=== PATIENT | male | born 1950 | race Caucasian/White ===

== ENCOUNTER → 2023-12-08 08:29 | Outpatient (REF) | payer MEDICARE, SELFPAY ==
[2023-12-08 08:47] VITALS: BP 129/85; BP_SYST 50
[2023-12-08] MEDS: ANCEF 10 IV (10:04)
[2023-12-08 11:05] VITALS: BP 121/72
[2023-12-08 11:10] VITALS: BP 117/82
[2023-12-08 11:15] VITALS: BP 113/72
[2023-12-08 11:30] VITALS: BP 114/72
== END ==
LOC: RADI 08:29
PROVIDERS: ATTENDING PHYSICIAN Internal Medicine Hematology & Oncology; FAMILY PHYSICIAN Internal Medicine
DX: C88.0 Waldenstrom macroglobulinemia (principal)
CPT/HCPCS: 36561; 76937; 77001; 99152; 99153; C1788

== ENCOUNTER → 2024-01-04 15:26 | Outpatient (REF) | payer MEDICARE, SELFPAY ==
[2024-01-04 10:05] LABS: % Basophils 1.2 % (0-2); % Immature Granulocytes 0.2 % (0-0.5); % Lymphocytes 25.7 % (20.5-51.1); % Monocytes 7.2 % (1.7-9.3); % Neutrophils 59.7 % (42.2-75.2); Absolute Basophils 0.1 10^3/uL (0-0.2); Absolute Eosinophils 0.4 10^3/uL (0-0.7); Absolute Lymphocytes 1.5 10^3/uL (1.2-3.4); Absolute Monocytes 0.4 10^3/uL (0.1-0.6); Absolute Neutrophils 3.5 10^3/uL (1.4-6.5); Hematocrit 44.9 % (39.0-52.0); Mean Corp Hgb Conc. 33.4 g/dL (33.0-37.0); Mean Corpuscular Hgb 29.5 pg (27.0-31.0); Mean Corpuscular Volume 88.2 fL (80.0-94.0); Nucleated Red Blood Cells % 0 % (-); Platelet Count 210 10^3/uL (130-400); Red Blood Cell Count 5.09 10^6/uL (4.70-6.10); Red Cell Dist. Width 13.8 % (11.5-14.5); White Blood Cell Count 5.8 10^3/uL (4.8-10.8)
== END ==
LOC: OIDL 15:26
PROVIDERS: ATTENDING PHYSICIAN Internal Medicine Hematology & Oncology
DX: D47.2 Monoclonal gammopathy (principal)
CPT/HCPCS: 85025

== ENCOUNTER 2024-01-14 06:36 | Inpatient (IN) | payer MEDICARE, SELFPAY ==
[2024-01-14] VITALS (16 sets, daily range): BP systolic 124–199; BP diastolic 62–95; BMI 29.3; BMI 27.8
--- NOTE | 2024-01-14 03:36 | ED.GENMED ---
History of Present Illness
General
Chief Complaint: Abdominal Pain
Source: patient and spouse
Time Seen by Provider: 01/14/24 03:24
Travel History
Have you had any contact with someone who has COVID-19?: No
Do you have any symptoms of coronavirus? Fever > 100 degrees, chills, cough, shortness of breath, sore throat, loss of taste or smell, muscle aches, or headache?: No
History of Present Illness
History of Present Illness:
This patient is a 73-year-old male presents emergency department with complaints of epigastric discomfort that developed at approximately 10:30 PM tonight. He was at a function, reports last eating around 9 or 9:30 PM, and also had 4 drinks of
alcohol. The pain, since beginning at 1030, has gotten progressively worse and is very painful. He denies radiation of the pain, back pain, chest pain, dyspnea, vomiting, nausea, fever, chills, lower abdominal pain. Patient had a normal bowel
movement this morning and has been urinating as usual. The pain is not 'ripping' or 'tearing', does not radiate to the back, and was not sudden onset.
Past History
Past History
ED Past Medical History: HTN, Other (Seasonal allergies) and Other (CIDP )
ED Past Surgical History: Other (Vasectomy)
Social History
Tobacco: Non-smoker
Alcohol: Occasional
Drug: None
Personal:
Living: with family
Phy Exam
Physical Exam
Physical Exam:
GENERAL: Alert , in no apparent distress, pleasant, nontoxic
EYE: pupils equal and reactive
NECK: Supple, no significant adenopathy.
ENT: o/p clr, mmm.
CARDIAC: Regular rate and rhythm .
LUNGS: Clear breath sounds bilaterally, no acute respiratory distress, no wheezes/rales/rhonchi
ABDOMEN: Soft, mild right upper quadrant and epigastric tenderness, no r/g, no cvat
NEUROLOGICAL: Alert and oriented, no focal neuro deficits
SKIN: Warm and dry, skin intact.
MUSCULOSKELETAL: No edema, well perfused.
PSYCH: Normal and appropriate interaction.
Course
Orders/Labs/Results
Orders:
Orders
01/14/24 03:05
EKG [Electrocardiogram (*1)] Urgent
Reason for Study: Abdominal Pain
EKG- Treatment ONCE
01/14/24 03:36
US Abdomen Complete/Upper Urgent
Comment:
Reason For Exam: upper abd pain
01/14/24 03:40
Morphine Sulfate 6 mg IV NOW STA
01/14/24 03:52
Complete Blood Count/No Diff Urgent
Glycohemoglobin (HgbA1c) Urgent
Troponin I Urgent
01/14/24 04:55
Comprehensive Metabolic Panel Routine
Lipase Routine
Comment: REDRAW
01/14/24 05:01
Morphine Sulfate 6 mg IV NOW STA
01/14/24 05:38
Morphine Sulfate 6 mg IV NOW STA
01/14/24 05:41
Piperacillin/Tazo 3.375 Gram [Zosyn] 3.375 gram in 50 ml IV NOW
01/14/24 06:23
Admit/Transfer Patient As Directed
Co-Sign Provider:
Level of Care: Inpatient admission
Assign to:: Medical/Surgical
Physician / Group: Marcelo
Diagnosis: Symptomatic Cholelithiasis
Reason for Hospitalization: Symptomatic Cholelithiasis
Expected length of stay greater than two midnights?: Yes
ELOS- Estimated Length of Stay in days: 2
I certify the patient meets the requirements for IP care: Yes
Code Status As Directed
Resuscitation Status: Full Code
01/14/24 07:08
SURGICAL CONSULT Routine
Consulting Provider: Efrain Booker
Was physician already notified: No
Reason for consult: Symptomatic Cholelithiasis
01/14/24 08:17
HYDROmorphone [Dilaudid] 0.5 mg IV Q4HPRN PRN
01/14/24 11:18
Acetaminophen [Tylenol] 650 mg PO Q4HPRN PRN
Lactated Ringers [Lr] 1,000 ml IV 100 mls/hr
Ondansetron Injectable [Zofran] 4 mg IV Q6HPRN PRN
Pantoprazole [Protonix IV] 40 mg IV DAILY
01/14/24 11:18
Consult Notification Routine
Specialty to Notify: Surgical
Date consulting provider notified: 01/14/24
Time consulting provider notified: 11:18
Notified:: Provider
Comment: Dr Booker saw patient already
Activity As Directed
Activity Level: Ambulate
With Assistance
Bladder Scan As Directed
Follow Bladder Retention/Intermittent Cath Algorithm?: Yes
PRN if no void in __ hours: 6
Frequency: Per Retention Algorithm
If Bladder Scan Result >: 400
then:: Straight cath
I/O [Intake/ Output] As Directed
Frequency: Per unit guidelines
Pneumatic Compression Sleeves As Directed
Type: Knee high
Straight Cath As Directed
Frequency: Per Retention Algorithm
Additional Instructions: straight cath as needed per acute urinary retention algorithm for 24 hrs
Additional Instructions: for bladder scan greater than 400 mL
Vital Signs As Directed
Frequency: Per unit guidelines
Oxygen Therapy [O2 Therapy] [RESP] Routine
Titrate/Wean O2 to maintain O2 sat greater than (%): 94
DX Deep Vein Thrombosis Video Routine
01/15/24 05:12
Complete Blood Count/No Diff IN AM
01/15/24 Breakfast
NPO
Allow oral meds: Yes
Allow clear liquids: Sips of Clears
Abnormal Lab Results
01/14/24 01/14/24
03:52 04:55
Sodium 132 L mmol/L
(135-145)
BUN 27 H mg/dl
(9-20)
Glucose 121 H mg/dl
(70-99)
Hemoglobin A1c 5.7 H %
(4.0-5.6)
Total Protein 8.6 H g/dl
(6.3-8.2)
01/14/24 03:52
01/14/24 04:55
Vital Signs
Initial and Last Documented VS:
Initial Vital Signs
Temp Pulse Resp BP Pulse Ox
97.7 F 64 16 199/95 97
01/14/24 03:12 01/14/24 03:12 01/14/24 03:12 01/14/24 03:12 01/14/24 03:12
Last Documented Vital Signs
Temp Pulse Resp BP Pulse Ox
98.1 F 59 17 129/63 97
01/15/24 14:19 01/15/24 14:19 01/15/24 14:19 01/15/24 14:19 01/15/24 14:19
*Critical Care Note
Total Time (30-74mins, 75-104mins- exclusive of procedures): Not Applicable
Update Note
Update Note:
Patient presents to the Emergency Department with ___epigastric pain
Number and Complexity of Problems Addressed at the Encounter
� Chronic conditions affecting care:
� Acute Exacerbation and/or Progression of Chronic Illness:
� Differential Diagnosis includes: But not limited to ACS, pancreatitis, cholecystitis, aortic aneurysm, etc.
Amount and/or Complexity of Data to be Reviewed and Analyzed
� I performed an independent evaluation of and my interpretation is:
EKG: Read by me, left bundle branch block, no acute ischemia, normal sinus rhythm
CT:
Xrays:
Laboratory Studies: Generally' unremarkable
Other: Ultrasound suggestive of hepatic steatosis. Gallbladder contains numerous gallstones in the neck which appear impacted, mild gallbladder distention with slightly tensile appearance of the fundus, overall ultrasound
findings are therefore considered equivocal for the diagnosis of cholecystitis. CBD measures 4.5 mm, no significant intrahepatic or extrahepatic ductal dilatation, normal bilateral kidneys nonaneurysmal aorta
� Review of other/old records reveals:
� Clinical information was obtained by an independent historian: who is bedside
� Prescriptions/Medications Considered but not given:
� Further testing considered but not performed:
Risk of Complications and/or Morbidity or Mortality of Patient Management
� Social determinants of health affecting care:
� Discussion with other providers (PCP, Hospitalists, Consultants, etc):
� Escalation of care including admission/observation vs risk of discharge considered: 2 3:39 AM, I met patient upon his arrival to the room, helped him get settled in bed and I personally put him on the monitor while I took a
history. Of note, patient states that his brother of an aneurysm although he does not know further details for example if it was thoracic or abdominal, etc. His history and physical are not suggestive of an aortic etiology, pain not abrupt in
onset, not typical in quality or radiation, pulses are equal, etc. etc. However, this does remain on the differential, I have asked community development coordinator to notify ultrasound of the need for a prompt ultrasound now while we obtain port access and obtain labs.
Patient also notes that he has a history of a left bundle branch block on ECG as noted here.
5:39 AM labs ultrasound etc. noted, strongly suspects impacted gallstones as etiology of patient's symptoms. Does not appear septic. No ductal dilatation. Equivocal for cholecystitis. Has required several doses of pain medication. Will admit to
hospitalist with GI and general surgery consult.
ED Attending Note
-
Portions of this chart may have been created with voice recognition software.� Occasional wrong word or��sound alike� substitutions may have occurred due to the inherent limitations of voice recognition software.
Discharge Plan
Departure
Patient Disposition: Admit
Date of Disposition: 01/14/24
Time of Disposition: 05:40
Admit to: Med/Surg
Admit to doctor: marcelo
Presentation/result/management discussed w/ accepting MD/DO: Hospitalist
Condition: Good
Discharge Problem:
impacted gallstones
Interventions
Interventions:
*Risk Screen - Suicide Last Done: 01/14/24 03:12
*General Assessment Last Done: 01/14/24 03:12
*Neglect/Abuse Screening Last Done: 01/14/24 03:12
ED- Fall Risk Assessment Last Done: 01/14/24 04:07
*ED COVID-19 Vaccine History Last Done: 01/14/24 03:44
*Nursing Disposition Last Done: 01/14/24 11:20
SN-Uenljb-Irfrdctzrj Assessment Last Done: 01/14/24 08:40
Discharge Date and Time
Discharge Date/Time: 01/14/24 11:10
[2024-01-14] MEDS: MORPHINE SULFATE 6 MG IV ×3 (04:00→05:55)
[2024-01-14 04:04] LABS: Hematocrit 41.1 % (39.0-52.0); Hemoglobin 14.6 g/dL (13.0-18.0); Mean Corp Hgb Conc. 35.5 g/dL (33.0-37.0); Mean Corpuscular Hgb 29.8 pg (27.0-31.0); Mean Corpuscular Volume 83.9 fL (80.0-94.0); Mean Platelet Volume 9.2 fL (7.4-10.4); Platelet Count 197 10^3/uL (130-400); Red Cell Dist. Width 13.6 % (11.5-14.5); White Blood Cell Count 7.1 10^3/uL (4.8-10.8)
--- NOTE | 2024-01-14 04:20 | EDRN ---
Pt developed epigastric pain described as 'achy' around 2229. Pt did not eat dinner, rather he grazed on foods until 4144-5964. Pt took 'a bunch of antacids' which did not help the pain. Pt tried to make himself vomit unsuccessfully. No cp, sob,
radiation of pain, n/v/d/constipation, urinary symptoms, fever/chills/cough. Pt more comfortable supine vs sitting or standing.
[2024-01-14 04:31] LABS: Troponin I < 0.012 ng/ml
[2024-01-14 05:20] LABS: ALT (SGPT) 43 U/L (0-50); AST (SGOT) 50 U/L (17-59); Albumin 4.3 g/dl (3.5-5.0); Alkaline Phosphatase 104 U/L (38-126); Blood Urea Nitrogen 27 mg/dl (9-20); Calcium 9.5 mg/dl (8.4-10.2); Carbon Dioxide 26 mmol/L (22-30); Chloride 99 mmol/L (98-107); Estimated Creatinine Clearance 65 ml/min; Glucose 121 mg/dl (70-99); Lipase 150 U/L (23-300); Potassium 3.9 mmol/L (3.5-5.1); Sodium 132 mmol/L (135-145); Total Bilirubin 0.7 mg/dl (0.2-1.3); Total Protein 8.6 g/dl (6.3-8.2); eGFR > 60.00
[2024-01-14] MEDS: ZOSYN 50 IV ×3 (05:59→17:54)
--- NOTE | 2024-01-14 06:36 | HPS.HSE ---
Family Physician
-
Family Physician: David Kowalski
Chief Complaint
-
Abd Pain
History of Present Illness
Patient is a 73y M with PMH significant for hypertension and peripheral neuropathy who presents to ED complaining of abdominal pain. Patient states that he developed sudden onset of epigastric abdominal pain around 10:30 PM last night. Pain was
severe and intermittent. 'Came in waves'. he denies any associated nausea - although he did attempt to induce emesis as he thought this might improve his symptoms. It did not. He denies any fevers or chills. No chest pain or dyspnea. He denies
any prior history of similar symptoms.
Symptoms became more severe and more consistent throughout the night.
At present in the ED, he is feeling improved after receiving pain medication.
Medical History
Past Medical History
Past Medical History: Reports Other
Additional Past Medical History:
Hypertension
Peripheral Neuropathy
Known LBBB
Past Surgical History: Reports Other
Additional Past Surgical History:
T&A
Vasectomy
Right ACW Port Placement
Social History
Tobacco: Non-smoker
Alcohol: None
Drug: None
Family History
Family History: Not pertinent
Allergies / Home Medications
Allergies reflects when Allergies were last updated in [facility].
Home Medications with original date entered in [facility]
Allergy/Medication List:
Allergies
Allergy/AdvReac Type Severity Reaction Status Date / Time
cat dander Allergy Unknown Verified 01/14/24 04:05
levofloxacin [From Levaquin] Allergy Unknown Verified 01/14/24 04:05
pollen extracts Allergy Unknown Verified 01/14/24 04:05
Home Medications
fexofenadine 180 mg tablet 180 mg PO DAILY 12/07/23
losartan 100 mg-hydrochlorothiazide 25 mg tablet 1 tab PO DAILY 12/07/23
Review of Systems
-
History Source: Patient
A 12 point ROS was completed and negative except as noted: Yes
Constitutional: Denies Fever or Chills
Respiratory: Denies Cough or Trouble Breathing
Cardiac: Denies Chest Pain or Palpitations
Abdomen/GI: Reports Abdominal Pain; Denies Nausea, Vomiting, Diarrhea or Constipated
: Denies Dysuria or Flank Pain
Neurological: Denies Dizzy or Headache
Psych: Denies Depression or Anxiety
Physical Exam
Vital Signs
Vital Signs
Temp Pulse Resp BP Pulse Ox
97.7 F 54 14 146/76 97
01/14/24 03:12 01/14/24 06:00 01/14/24 06:00 01/14/24 06:00 01/14/24 03:12
Physical Exam
General: Other (73y M in no acute distress.)
HEENT: Moist mucous membranes and PERRLA
Respiratory: Clear; No Wheezes, Rales or Rhonchi
Cardiac: S1/S2 and Regular Rhythm; No Murmur
GI: Soft, Non Tender, Non Distended and Normal Bowel Sounds
Musculoskeletal: No Clubbing, No Cyanosis and No Edema
Neuro: AO x 3
Laboratory Results
-
01/14/24 03:52
01/14/24 04:55
Laboratory Results
Total Bilirubin 0.7 mg/dl (0.2-1.3) 01/14/24 04:55
AST 50 U/L (17-59) 01/14/24 04:55
ALT 43 U/L (0-50) 01/14/24 04:55
Alkaline Phosphatase 104 U/L (38-126) 01/14/24 04:55
Troponin I < 0.012 ng/ml 01/14/24 03:52
Lipase 150 U/L (23-300) 01/14/24 04:55
Impression/Plan
-
A/P: Patient is a 73y M with PMH significant for hypertension an neuropathy who presents to ED complaining of abdominal pain.
Symptomatic Cholelithiasis
- Admit for further evaluation and treatment.
- US done in the ED shows many gallstones with some impacted / in the gallbladder neck.
- No significant wall thickening or pericholecystic fluid, No ductal dilation.
- LFTs are normal / no evidence of cholestasis or biliary obstruction.
- Patient is afebrile and non-toxic appearing without leukocytosis.
- Continue supportive care with pain control, antiemetics if needed and IVFs.
- Consult Surgery to evaluate for possible cholecystectomy.
Benign Hypertension
- Stable. Continue losartan withholding parameters.
- Hold HCTZ component for now.
Peripheral Neuropathy
- Unclear etiology - potentially secondary to remote and prolonged quinolone use (apparently for chronic sinusitis).
- Patient receives IVIG infusions every 3 weeks for treatment.
- No inpatient management needed.
DVT Prophylaxis: SCDs
Code Status: Full
--- NOTE | 2024-01-14 07:42 | W.PN.HOSP.TC ---
Addendum entered and electronically signed by Rosmery Echavarria MD 01/14/24 10:30:
d/w Card Dr Felix.
Bedside echo performed, EF normal.
LBBB was from 12 years ago, hence not concerning.
Pt sees Dr WATTERS outpt (Dr Rolon).
Medically optimized to proceed with low risk procedure
Surgery team informed
Original Note:
Today's Communication/Plan
-
see A/P
Assessment / Plan
Assessment / Plan
73y M with PMH significant for hypertension and peripheral neuropathy who presented to ED complaining of abdominal pain.�Patient states that he developed sudden onset of epigastric abdominal pain around 10:30 PM last night.�Pain was severe and
intermittent.� 'Came in waves'.� he denies any associated nausea - although he did attempt to induce emesis as he thought this might improve his symptoms- it did not.�
He denies any fevers or chills.� No chest pain or dyspnea.� He denies any prior history of similar symptoms.
Symptoms became more severe and more consistent throughout the night.
At present in the ED, he is feeling improved after receiving pain medication.
A/P:
# Symptomatic Cholelithiasis/ biliary colic
US done in the ED shows many gallstones with some impacted / in the gallbladder neck- pending formal report
No significant wall thickening or pericholecystic fluid,� No ductal dilation.
LFTs are normal / no evidence of cholestasis or biliary obstruction.
Patient is afebrile and non-toxic appearing without leukocytosis.
Continue supportive care with pain control, antiemetics if needed and IVFs.
Surgery on board and plan for perc glo 01/13
# Benign Hypertension- Stable.�
Continue losartan with holding parameters.
Hold HCTZ component for now.
# Peripheral Neuropathy- Unclear etiology - potentially secondary to remote and prolonged quinolone use (apparently for chronic sinusitis).
Patient receives IVIG infusions every 3 weeks for treatment.
No inpatient management needed.
DVT Prophylaxis:� SCDs
Code Status:� Full
Anticipated Discharge: 24 - 48 hours
Subjective/Interval History
-
Date of Service: January 14, 2024
Objective Data
-
Labs:
Laboratory Results
01/14/24 01/14/24
03:52 04:55
WBC 7.1
Hgb 14.6
Hct 41.1
Plt Count 197
Sodium Cancelled 132 L
Potassium Cancelled 3.9
Chloride Cancelled 99
Carbon Dioxide Cancelled 26
BUN Cancelled 27 H
Creatinine Cancelled 1.1
Glucose Cancelled 121 H
Calcium Cancelled 9.5
Total Bilirubin Cancelled 0.7
AST Cancelled 50
ALT Cancelled 43
Alkaline Phosphatase Cancelled 104
Vital Signs:
Vital Signs
Temp Pulse Resp BP Pulse Ox
36.5 C 54 14 146/76 97
01/14/24 03:12 01/14/24 06:00 01/14/24 06:00 01/14/24 06:00 01/14/24 03:12
Review of Systems
-
Abdomen/GI: Reports Abdominal Pain (improved)
Physical Exam
-
General: Well Developed, Well Nourished, No Apparent Distress, Comfortable and Conversant; Negative Respiratory Distress
HEENT: Normocephalic, Atraumatic, Nose Appears Normal and Ears Appear Normal; Negative Oxygen
Respiratory: Clear to Auscultation and Non Labored Respirations; Negative Accessory Resp Muscle Use
Cardiac: Regular Rhythm and S1/S2
GI: Soft, Nondistended, Normal Bowel Sounds and Tender (mild upper abdomen )
Skin: Warm and Dry
Neuro: Awake, Alert, Oriented, AO x 3 and Nonfocal/Grossly Intact
Psych: Calm and Intact Judgement/Insight
Data Reviewed
-
Labs: Labs Reviewed by me
--- NOTE | 2024-01-14 08:24 | CON.GS ---
Addendum entered and electronically signed by Efrain Booker MD 01/14/24 10:35:
Patient seen and examined with resident. Agree with assessment plan as documented below.
Patient is a 73 yo M with a PMH of HTN, known LBBB, and peripheral polyneropathy who presents to the ED with RUQ abdominal pain. Mr. Mabry states that he was in his usual state of health until a dinner alliance party on the evening of 01/12. Following this
he developed intense RUQ abdominal pain and discomfort radiating to his back. No nausea or emesis. Denies fevers, chills, jaundice, pale stools, or tea colored urine. Upon further prompting, he denies any prior episodes of upper abdominal pain or
discomfort with oral intake. His symptoms are improved, but not completely resolved.
Gen: NAD
Abd: soft, mild tenderness in RUQ, positive Abbott's with deep palaption, mild distension/obesity, non-peritoneal
Labs and US imaging were reviewed.
Patient is a 73 yo M p/w biliary colic versus acute cholecystitis
The natural history and pathophysiology of biliary and stone disease was discussed. Anatomy was reviewed. Workup thus far was reviewed. Given his persistent pain, recommend cholecystectomy during this admission. Patient is in agreement and would
like to proceed with surgical intervention.
Plan for a laparoscopic cholecystectomy with possible cholangiogram. The procedure itself, as well as the risks, benefits, and alternatives was discussed. Specifically, we discussed the risks of bleeding, infection, injury to surrounding
structures (bowel, bile ducts), CBD injury, need for open procedure. Typical post procedure recovery including pain management and the 10 to 20% risk of fluctuations in GI function was discussed. All questions answered. Consent signed.
-- Laparoscopic cholecystectomy with possible IOC
-- NPO, IVF
-- Zosyn
-- Cardiology eval for forrest-op risk stratification and LBBB
Original Note:
Consultation
-
Reason for Consultation: Symptomatic Cholelithiasis
Medical History
-
Chief Complaint: RUQ Pain
History of Present Illness:
73 year old male history of HTN, peripheral neuropathy who presents to the ED after waxing and waning RUQ pain with radiation to back. Per patient, was in usual state of health at dinner alliance party with friends when he started developing RUQ discomfort
that fluctuated in severity. Denies similar episodes in the past. Denies nausea but did attempt to induce emesis to improve symptoms. After persistence in symptoms, presented to the ED where RUQ US demonstrated evidence of numerous impacated
gallstones consistent with clinical picture of cholelithiasis. Remains afebrile with normal LFTs. No history of stool or urine changes, abdominal surgical history. Not anticoagulated. General surgery consulted for symptomatic cholelithiasis. At time
of examination, patient is resting comfortably with improvement in symptoms with morphine.
Past Medical History
Past Medical History: HTN
Past Surgical History: Reviewed & Noncontributory
Social History
Alcohol: Occasional
Family History
Family History: Reviewed & Not Pertinent
Allergies / Home Medications
Allergy/AdvReac Type Severity Reaction Status Date / Time
cat dander Allergy Unknown Verified 01/14/24 04:05
levofloxacin [From Levaquin] Allergy Unknown Verified 01/14/24 04:05
pollen extracts Allergy Unknown Verified 01/14/24 04:05
Medication Instructions Recorded Confirmed Type
fexofenadine 180 mg tablet 180 mg PO DAILY 12/07/23 01/14/24 History
losartan 100 1 tab PO DAILY 12/07/23 01/14/24 History
mg-hydrochlorothiazide 25 mg tablet
Review of Systems
-
All other systems: Negative unless noted
Constitutional: No Symptoms
EENT: No Symptoms
Respiratory: No Symptoms
Cardiac: No Symptoms
Abdomen/GI: Abdominal Pain
: No Symptoms
Musculoskeletal: No Symptoms
Skin: No Symptoms
Neurological: No Symptoms
Endocrine: No Symptoms
Hematologic/Lymphatic: No Symptoms
A 10 point review of systems was completed, and was negative except as per HPI.
Physical Exam
Vital Signs
Temp Pulse Resp BP Pulse Ox
97.7 F 54 14 146/76 97
01/14/24 03:12 01/14/24 06:00 01/14/24 06:00 01/14/24 06:00 01/14/24 03:12
01/13/24 01/14/24 01/15/24
05:59 06:59 06:59
Actual Weight
Body Mass Index (BMI) 29.3
Lab Results
01/14/24 03:52
01/14/24 04:55
WBC 7.1 10^3/uL (4.8-10.8) 01/14/24 03:52
Hgb 14.6 g/dL (13.0-18.0) 01/14/24 03:52
Hct 41.1 % (39.0-52.0) 01/14/24 03:52
Plt Count 197 10^3/uL (130-400) 01/14/24 03:52
Data Reviewed
-
Radiology: Report Reviewed by me
Ultrasound: Image Personally Visualized and interpreted
Labs: Labs Reviewed by me
Assessment / Plan
-
73 year old M hx of HTN and peripheral neuropathy presenting with waxing and waning RUQ pain, imaging and clinical picture consistent with symptomatic cholelithiasis. Patient consented for laparoscopic cholecystectomy.
- NPO
- Type & Screen
- Continue morphine for pain management
- OR later today (01/14/24)/early tomorrow (01/15/24) for lap glo with Dr. Booker
[2024-01-14] MEDS: DILAUDID 0.5 MG IV (08:34)
--- NOTE | 2024-01-14 10:27 | W.PN.UPDATE ---
Update Note
Progress Note Update
73-year-old gentleman with known history of hypertension currently maintained on losartan/hydrochlorothiazide
Who was diagnosed with left bundle branch block 12 years ago and did wear a Holter monitor that did not show any arrhythmias. He does not know of his LV systolic functions.
He is undergoing laparoscopic cholecystectomy versus possible laparotomy. He is intermediate risk patient for moderate to high risk procedure.
A bedside echo was done that shows LVEF of 55 to 60% with wall motion abnormalities likely consistent with bundle branch block.
No further testing is needed. Patient can proceed to the scheduled surgery as planned without any further testing.
CCT 30 min
--- NOTE | 2024-01-14 11:19 | EDRN ---
Patient taken to room 2101 by community service technician.
[2024-01-14] MEDS: LR 1000 IV ×2 (11:35→22:31)
[2024-01-14] MEDS: COZAAR 100 MG PO (11:42)
[2024-01-14] MEDS: NSS (PRESERVATIVE FREE) 10 ML IV (11:43)
[2024-01-14] MEDS: PROTONIX IV 40 MG IV (11:43)
[2024-01-14 12:30] LABS: Glycohemoglobin (HgbA1c) 5.7 % (4.0-5.6)
--- NOTE | 2024-01-14 13:38 | PTCARENOTE ---
Pt arrived from ED at aprox 1120. Pt able to walk into room unassisted. Admission and assessment done. Pt with no c/o at this time. Pt for OR either today or tomorrow. IVF started to right hand. IV team in to access patients port.
--- NOTE | 2024-01-14 14:26 | W.SUR.PREOP ---
Pre-Operative Surgical Note
-
I have examined this patient prior to the performance of the scheduled procedure.
The patient's condition is unchanged from the time of the current History and
Physical and the patient is able to undergo the scheduled procedure.
--- NOTE | 2024-01-14 20:00 | PTCARENOTE ---
Pt. transported to PACU area, report given to Jovana.
--- NOTE | 2024-01-14 21:52 | W.IMMPOSTOP ---
Addendum entered and electronically signed by Efrain Booker MD 01/14/24 22:00:
[facility]#[id number]
Original Note:
Surgical Immed Post Op Note
-
Primary Surgeon: Ade
Assisting Surgeon: DALILA Dsouza
Pre-op Diagnosis: Acute cholecystitis
Post-op Diagnosis: Acute cholecystitis
Procedure Performed: Laparoscopic cholecystectomy
Anesthesia Type: General
Specimen / Cultures:
1. Gallbladder
Estimated Blood Loss: 7 cc
Complications: None
Operative Findings:
1. Acutely inflamed GB, edematous, thickened wall
2. Critical view of safety
3. No IOC as Rads not available
Plan:
-- Standard recovery
-- No need for additional abx
[2024-01-14] MEDS: DEMEROL 12.5 MG IV ×2 (22:13→22:30)
--- NOTE | 2024-01-14 23:01 | PTCARENOTE ---
Pt. returning from PACU, assessed with off-going PACU nurse. Pt. drowsy, arousable to verbal stimuli, even and nonlabored breathing on RA, in NAD, denies nausea, states pain is tolerable, and VSS. Pt. given ice chips at this time, updated on changes
to care plan and he verbalized his understanding.
[2024-01-15] VITALS: BP 139/75
[2024-01-15 01:00] VITALS: BP 126/76
[2024-01-15 02:11] VITALS: BP 134/64
[2024-01-15 05:37] LABS: Hematocrit 40.8 % (39.0-52.0); Hemoglobin 13.8 g/dL (13.0-18.0); Mean Corp Hgb Conc. 33.8 g/dL (33.0-37.0); Mean Corpuscular Hgb 29.9 pg (27.0-31.0); Mean Corpuscular Volume 88.3 fL (80.0-94.0); Mean Platelet Volume 9.5 fL (7.4-10.4); Platelet Count 180 10^3/uL (130-400); Red Blood Cell Count 4.62 10^6/uL (4.70-6.10); Red Cell Dist. Width 13.7 % (11.5-14.5); White Blood Cell Count 4.9 10^3/uL (4.8-10.8)
[2024-01-15 06:02] LABS: ALT (SGPT) 54 U/L (0-50); AST (SGOT) 52 U/L (17-59); Albumin 3.7 g/dl (3.5-5.0); Alkaline Phosphatase 85 U/L (38-126); Blood Urea Nitrogen 22 mg/dl (9-20); Calcium 9.1 mg/dl (8.4-10.2); Carbon Dioxide 30 mmol/L (22-30); Chloride 96 mmol/L (98-107); Estimated Creatinine Clearance 61 ml/min; Glucose 145 mg/dl (70-99); Potassium 4.6 mmol/L (3.5-5.1); Sodium 133 mmol/L (135-145); Total Bilirubin 0.6 mg/dl (0.2-1.3); Total Protein 7.5 g/dl (6.3-8.2); eGFR > 60.00
[2024-01-15 07:45] VITALS: BP 125/59
--- NOTE | 2024-01-15 08:56 | W.PN.GS2 ---
Today's Communication / Plan
-
dispo planning
Assessment / Plan
-
73 yo male presenting with acute cholecystitis now POD #1 Lap glo
AFVSS
Labs stable post op
Tolerating diet
Pain well managed
--Continue regular diet
--Reviewed post op care with patient
--Analgesics as needed
--D/C IVF
--Ok for d/c from surgical standpoint, d/c instructions updated
Subjective Data
-
Date of Service: January 15, 2024
Patient seen and examined at bedside. Post op discomfort minimal. Denies n/v. Tolerating diet.
Objective Data
-
Intake and Output
01/14/24 01/15/24 01/16/24
06:59 06:59 06:59
Intake Total 1860 / 1860
Balance 1860 / 1860
Intake:
Oral fluids 360 / 360
IV fluids (Total) 1400 / 1400
Normosol 100 / 100
IV piggybacks 100 / 100
Other:
Number of approximated MODERATE 2
amounts of urine
Vital Signs
Temp Pulse Resp BP Pulse Ox
98.1 F 51 17 125/59 96
01/15/24 07:45 01/15/24 07:45 01/15/24 07:45 01/15/24 07:45 01/15/24 07:45
Lab Results
01/15/24 05:12
01/15/24 05:12
Calcium 9.1 mg/dl (8.4-10.2) 01/15/24 05:12
Total Bilirubin 0.6 mg/dl (0.2-1.3) 01/15/24 05:12
Direct Bilirubin 0.0 mg/dl (0.0-0.4) 01/15/24 05:12
AST 52 U/L (17-59) 01/15/24 05:12
ALT 54 U/L (0-50) H 01/15/24 05:12
Alkaline Phosphatase 85 U/L (38-126) 01/15/24 05:12
Total Protein 7.5 g/dl (6.3-8.2) 01/15/24 05:12
Albumin 3.7 g/dl (3.5-5.0) 01/15/24 05:12
Physical Exam
-
NAD, Ox3
ABD soft/ mild incisional tenderness/ ND
Incisions well approximated with intact glue, no erythema
[2024-01-15] MEDS: LR IV (09:28)
[2024-01-15] MEDS: COZAAR 100 MG PO (09:28)
[2024-01-15] MEDS: PROTONIX IV 40 MG IV (09:30)
[2024-01-15] MEDS: NSS (PRESERVATIVE FREE) 10 ML IV (09:30)
[2024-01-15] MEDS: FLUSH (NSS) 1 FLUSH IV (09:31)
--- NOTE | 2024-01-15 12:23 | W.PN.HOSP.TC ---
Today's Communication/Plan
-
d/c
Assessment / Plan
Assessment / Plan
pt is a 73 year old male
Symptomatic Cholelithiasis/ biliary colic --apprec surgery--POD 1 from lap glo--US done in the ED shows many gallstones with some impacted in the gallbladder neck--LFTs are normal / no evidence of cholestasis or biliary obstruction--Patient is
afebrile and non-toxic appearing without leukocytosis--Continue supportive care with pain control, antiemetics if needed and IVFs.
Benign Hypertension- Stable--Continue losartan with holding parameters--Restart HCTZ component for now.
Peripheral Neuropathy- Unclear etiology - potentially secondary to remote and prolonged quinolone use (apparently for chronic sinusitis)--Patient receives IVIG infusions every 3 weeks for treatment--No inpatient management needed.
DVT Prophylaxis:� SCDs
Code Status:� Full
Anticipated Discharge: Today
Subjective/Interval History
-
Date of Service: January 15, 2024
pt ready for d/c
Objective Data
-
Labs:
Laboratory Results
01/15/24
05:12
WBC 4.9
Hgb 13.8
Hct 40.8
Plt Count 180
Sodium 133 L
Potassium 4.6
Chloride 96 L
Carbon Dioxide 30
BUN 22 H
Creatinine 1.2
Glucose 145 H
Calcium 9.1
Total Bilirubin 0.6
AST 52
ALT 54 H
Alkaline Phosphatase 85
Vital Signs:
max temp for 24 hours
01/15/24
02:11
Temp 98.8 F
Vital Signs
Temp Pulse Resp BP Pulse Ox
98.1 F 51 17 125/59 96
01/15/24 07:45 01/15/24 07:45 01/15/24 07:45 01/15/24 07:45 01/15/24 08:00
I&O
01/14/24 01/15/24 01/16/24
06:59 06:59 06:59
Intake Total 1859
Balance 1859
Review of Systems
-
All other systems: Reviewed and negative
Physical Exam
-
General: Well Developed, Well Nourished and No Apparent Distress
HEENT: Normocephalic and Atraumatic
Respiratory: Clear to Auscultation; Negative Wheezes or Rhonchi
Cardiac: Regular Rhythm and S1/S2; Negative Murmur
GI: Soft, Nontender, Nondistended and Normal Bowel Sounds
Musculoskeletal: No Clubbing, No Cyanosis and No Edema
Neuro: Awake and Alert
Psych: Calm
--- NOTE | 2024-01-15 12:23 | CM ---
Patient seen at bedside with physician. Patient for discharge home today s/p surgery. Patient states that he lives with in a 2 story home. Patient indicated that he was planning to go home with family, and Patient stated that he was
independent of ADL's and IADL's. Patient PCP is Dr. Kowalski, and he uses [facility] for pharmacy needs, [facility]. CM will continue to follow for discharge planning needs.
Plan; home with no needs anticipated.
[2024-01-15 14:19] VITALS: BP 129/63
--- NOTE | 2024-01-15 17:03 | W.DCSUMMARY ---
Discharge Summary
Discharge Data
Date of Admission: 01/14/24
Date of Discharge: 01/15/24
-
Pending Results: No
Hospital Course
Primary care physician : David Kowalski
Principal Discharge diagnosis : Symptomatic cholelithiasis status post laparoscopic cholecystectomy
Chronic Discharge diagnosis : Essential hypertension, peripheral neuropathy
Hospital Course : Patient is a 73-year-old male with a history of essential hypertension and peripheral neuropathy who presented complaining of abdominal pain. He developed sudden onset abdominal pain around 10:30 PM the night prior to admission.
He stated it was severe and intermittent and came in waves. He denied fevers or chills. He denied nausea but attempted to induce emesis without improvement in his symptoms. Patient was found to have gallstones and was admitted.
Problem #1: Symptomatic cholelithiasis status post laparoscopic cholecystectomy. Patient was admitted and seen in consultation by surgery. Ultrasound done in the emergency department showed gallstones with an impacted stone in the gallbladder
neck. LFTs were normal. Patient was afebrile and nontoxic-appearing. He underwent laparoscopic cholecystectomy on January 14, 2024. He is tolerating his diet. He has been cleared for discharge from a surgical standpoint.
Problem #2: All other medical issues. These include essential hypertension and peripheral neuropathy. These medical issues were stable during his hospitalization. Medications were continued as able.
Patient is stable for discharge home at this time. If there are any questions regarding this dictation of his hospital stay, please not hesitate to call. Our office number is [phone].
Important imaging findings :
ABDOMINAL US IMPRESSION:Cholelithiasis
Procedure findings :
LAP CHOLECYSTECTOMY:
Primary Surgeon:� Ade
Assisting Surgeon:� DALILA Dsouza
Pre-op Diagnosis:� Acute cholecystitis
Post-op Diagnosis:� Acute cholecystitis
Procedure Performed:� Laparoscopic cholecystectomy
Anesthesia Type:� General
Specimen / Cultures:�
1. Gallbladder
Estimated Blood Loss:� 7 cc
Complications:� None
Operative Findings:�
1. Acutely inflamed GB, edematous, thickened wall
2. Critical view of safety
3. No IOC as Rads not available
Discharge Plan
-
Patient Disposition: Home (Routine Discharge)
Discharge Diagnosis/Procedures: Laparoscopic cholecystectomy due to symptomatic cholelithiasis, essential hypertension, peripheral neuropathy
Condition: Good
Diet: As tolerated and Low Fat
Additional Diets: Zenda/high fat foods and dairy products may cause loose stools and bloating post op for the first few weeks after surgery. If this is the case, follow a low fat diet.
Activity: No strenuous activity
Additional Activity: Do not lift more than 15 pounds for the next 3 weeks
Driving Restrictions: No driving for 24 hours
Bathing Restrictions: OK to Shower
Wound Care: The glue over your incisions will flake off in 2-3 weeks on its own. Ok to shower and wash gently with soap and water. Avoid scrubbing or picking off glue
Activity Restrictions/Additional Instructions:
Call your surgeon if you develop worsening abdominal pain, nausea with vomiting or a fever >100.5
Referrals:
Simon Kowalski MD [Family Provider] - in less than 1 week
Efrain Booker MD [Active] - in two to four weeks
Prescriptions:
New
acetaminophen 325 mg Tablet
650 mg PO Q4HPRN PRN (Reason: Mild Pain / Temp > 101) Qty: 0 0RF
Continued
fexofenadine 180 mg Tablet
180 mg PO DAILY
losartan-hydrochlorothiazide 100-25 mg Tablet
1 tab PO DAILY
Discharge Orders:
Discharge Patient (As Directed); Ordered 01/15/24
Ordered By: Coleen Todd
Discharge Date and Time
Discharge Date/Time: 01/15/24 14:22
== END 2024-01-15 14:22 | disposition home or self-care (01) | DRG 419 ==
LOC: 2 SOUTH 06:36
PROVIDERS: ADMITTING PHYSICIAN Hospitalist; ATTENDING PHYSICIAN Internal Medicine; CONSULT PHYSICIAN Surgery; EMERGENCY PHYSICIAN Emergency Medicine; FAMILY PHYSICIAN Internal Medicine
PROC: 0FT44ZZ Resection of Gallbladder, Percutaneous Endoscopic Approach (ICD-10-PCS; 2024-01-14)
DX: K80.12 Calculus of gallbladder with acute and chronic cholecystitis without obstruction (principal); I10 Essential (primary) hypertension; I44.7 Left bundle-branch block, unspecified; G62.9 Polyneuropathy, unspecified
CPT/HCPCS: 88304; 76700; 80053; 82248; 83036; 83690; 84484; 85027; 93005; 96365; 96375; 96376; 99285

== ENCOUNTER → 2024-01-25 09:47 | Outpatient (REF) | payer MEDICARE, SELFPAY ==
[2024-01-25 09:37] LABS: % Basophils 0.8 % (0-2); % Eosinophils 5.4 % (0-6); % Lymphocytes 26.8 % (20.5-51.1); % Monocytes 8.5 % (1.7-9.3); % Neutrophils 58.5 % (42.2-75.2); Absolute Eosinophils 0.3 10^3/uL (0-0.7); Absolute Lymphocytes 1.4 10^3/uL (1.2-3.4); Absolute Monocytes 0.4 10^3/uL (0.1-0.6); Hematocrit 45.5 % (39.0-52.0); Hemoglobin 15.4 g/dL (13.0-18.0); Mean Corp Hgb Conc. 33.8 g/dL (33.0-37.0); Mean Corpuscular Volume 88.5 fL (80.0-94.0); Mean Platelet Volume 9.4 fL (7.4-10.4); Platelet Count 243 10^3/uL (130-400); Red Blood Cell Count 5.14 10^6/uL (4.70-6.10); Red Cell Dist. Width 13.6 % (11.5-14.5); White Blood Cell Count 5.2 10^3/uL (4.8-10.8)
== END ==
LOC: OIDL 09:47
PROVIDERS: ATTENDING PHYSICIAN Internal Medicine Hematology & Oncology
DX: D47.2 Monoclonal gammopathy (principal)
CPT/HCPCS: 85025

== ENCOUNTER → 2024-02-15 11:13 | Outpatient (REF) | payer MEDICARE, SELFPAY ==
[2024-02-15 09:20] LABS: % Basophils 0.6 % (0-2); % Eosinophils 6.2 % (0-6); % Lymphocytes 28.6 % (20.5-51.1); % Monocytes 7.7 % (1.7-9.3); % Neutrophils 56.9 % (42.2-75.2); Absolute Eosinophils 0.3 10^3/uL (0-0.7); Absolute Lymphocytes 1.5 10^3/uL (1.2-3.4); Absolute Monocytes 0.4 10^3/uL (0.1-0.6); Absolute Neutrophils 3.1 10^3/uL (1.4-6.5); Hematocrit 44.2 % (39.0-52.0); Hemoglobin 14.9 g/dL (13.0-18.0); Mean Corp Hgb Conc. 33.7 g/dL (33.0-37.0); Mean Corpuscular Hgb 29.9 pg (27.0-31.0); Mean Corpuscular Volume 88.8 fL (80.0-94.0); Mean Platelet Volume 9.4 fL (7.4-10.4); Platelet Count 207 10^3/uL (130-400); Red Blood Cell Count 4.98 10^6/uL (4.70-6.10); Red Cell Dist. Width 13.6 % (11.5-14.5); White Blood Cell Count 5.4 10^3/uL (4.8-10.8)
[2024-02-15 10:11] LABS: ALT (SGPT) 30 U/L (0-50); AST (SGOT) 38 U/L (17-59); Albumin 4.2 g/dl (3.5-5.0); Alkaline Phosphatase 100 U/L (38-126); Blood Urea Nitrogen 25 mg/dl (9-20); Calcium 9.6 mg/dl (8.4-10.2); Carbon Dioxide 27 mmol/L (22-30); Chloride 103 mmol/L (98-107); Glucose 94 mg/dl (70-99); Potassium 4.1 mmol/L (3.5-5.1); Sodium 136 mmol/L (135-145); Total Bilirubin 0.7 mg/dl (0.2-1.3); Total Protein 7.9 g/dl (6.3-8.2); eGFR > 60.00
[2024-02-18 00:04] LABS: Albumin 4.14 g/dL (3.75-5.01); Alpha 1 Globulin 0.27 g/dL (0.19-0.46); Alpha 2 Globulin 0.68 g/dL (0.48-1.05); Free Kappa Light Chains,Quant 27.11 mg/L (3.30-19.40); Free Lambda Light Chains,Quant 19.77 mg/L (5.71-26.30); IgA 179 mg/dL (68-408); IgG 1867 mg/dL (768-1632); IgM 322 mg/dL (35-263); Immunofixation Electrophoresis IFE Done; Kappa/Lambda Fr Light Ratio 1.37 (0.26-1.65); Total Protein-Electrophoresis 7.8 g/dL (6.3-8.2)
== END ==
LOC: OIDL 11:13
PROVIDERS: ATTENDING PHYSICIAN Internal Medicine Hematology & Oncology
DX: D47.2 Monoclonal gammopathy (principal)
CPT/HCPCS: 80053; 82784; 83521; 84155; 84165; 85025; 86334

== ENCOUNTER → 2024-03-07 14:15 | Outpatient (REF) | payer MEDICARE, SELFPAY ==
[2024-03-07 09:45] LABS: % Basophils 1.2 % (0-2); % Eosinophils 7.8 % (0-6); % Lymphocytes 30.2 % (20.5-51.1); % Monocytes 8.8 % (1.7-9.3); Absolute Basophils 0.1 10^3/uL (0-0.2); Absolute Eosinophils 0.4 10^3/uL (0-0.7); Absolute Lymphocytes 1.6 10^3/uL (1.2-3.4); Absolute Monocytes 0.5 10^3/uL (0.1-0.6); Absolute Neutrophils 2.7 10^3/uL (1.4-6.5); Hematocrit 44.8 % (39.0-52.0); Hemoglobin 15.2 g/dL (13.0-18.0); Mean Corp Hgb Conc. 33.9 g/dL (33.0-37.0); Mean Corpuscular Hgb 29.9 pg (27.0-31.0); Mean Corpuscular Volume 88.2 fL (80.0-94.0); Mean Platelet Volume 9.8 fL (7.4-10.4); Platelet Count 197 10^3/uL (130-400); Red Blood Cell Count 5.08 10^6/uL (4.70-6.10); Red Cell Dist. Width 13.5 % (11.5-14.5); White Blood Cell Count 5.1 10^3/uL (4.8-10.8)
== END ==
LOC: OIDL 14:15
PROVIDERS: ATTENDING PHYSICIAN Nurse Practitioner Adult Health
DX: D47.2 Monoclonal gammopathy (principal)
CPT/HCPCS: 85025

== ENCOUNTER → 2024-03-28 15:54 | Outpatient (REF) | payer MEDICARE, SELFPAY ==
[2024-03-28 09:19] LABS: % Eosinophils 6.4 % (0-6); % Monocytes 8.1 % (1.7-9.3); % Neutrophils 54.5 % (42.2-75.2); Absolute Basophils 0.1 10^3/uL (0-0.2); Absolute Eosinophils 0.3 10^3/uL (0-0.7); Absolute Lymphocytes 1.6 10^3/uL (1.2-3.4); Absolute Monocytes 0.4 10^3/uL (0.1-0.6); Absolute Neutrophils 2.8 10^3/uL (1.4-6.5); Hematocrit 44.8 % (39.0-52.0); Hemoglobin 15.1 g/dL (13.0-18.0); Mean Corp Hgb Conc. 33.7 g/dL (33.0-37.0); Mean Corpuscular Hgb 29.8 pg (27.0-31.0); Mean Corpuscular Volume 88.4 fL (80.0-94.0); Mean Platelet Volume 9.6 fL (7.4-10.4); Platelet Count 187 10^3/uL (130-400); Red Blood Cell Count 5.07 10^6/uL (4.70-6.10); Red Cell Dist. Width 13.6 % (11.5-14.5); White Blood Cell Count 5.2 10^3/uL (4.8-10.8)
== END ==
LOC: OIDL 15:54
PROVIDERS: ATTENDING PHYSICIAN Internal Medicine Hematology & Oncology
DX: D47.2 Monoclonal gammopathy (principal)
CPT/HCPCS: 85025

== ENCOUNTER → 2024-05-16 09:25 | Outpatient (REF) | payer MEDICARE, SELFPAY ==
[2024-05-16 09:29] LABS: % Basophils 0.6 % (0-2); % Eosinophils 7.5 % (0-6); % Monocytes 7.7 % (1.7-9.3); % Neutrophils 54.2 % (42.2-75.2); Absolute Eosinophils 0.4 10^3/uL (0-0.7); Absolute Lymphocytes 1.5 10^3/uL (1.2-3.4); Absolute Monocytes 0.4 10^3/uL (0.1-0.6); Absolute Neutrophils 2.7 10^3/uL (1.4-6.5); Hematocrit 43.7 % (39.0-52.0); Hemoglobin 14.8 g/dL (13.0-18.0); Mean Corp Hgb Conc. 33.9 g/dL (33.0-37.0); Mean Corpuscular Hgb 30.3 pg (27.0-31.0); Mean Corpuscular Volume 89.5 fL (80.0-94.0); Mean Platelet Volume 9.4 fL (7.4-10.4); Platelet Count 195 10^3/uL (130-400); Red Blood Cell Count 4.88 10^6/uL (4.70-6.10); White Blood Cell Count 4.9 10^3/uL (4.8-10.8)
== END ==
LOC: OIDL 09:25
PROVIDERS: ATTENDING PHYSICIAN Internal Medicine Hematology & Oncology
DX: D47.2 Monoclonal gammopathy (principal); C88.0 Waldenstrom macroglobulinemia; G72.89 Other specified myopathies
CPT/HCPCS: 85025

== ENCOUNTER → 2024-06-06 14:57 | Outpatient (REF) | payer MEDICARE, SELFPAY ==
[2024-06-06 09:18] LABS: % Basophils 0.8 % (0-2); % Eosinophils 5.8 % (0-6); % Monocytes 9.9 % (1.7-9.3); % Neutrophils 53.5 % (42.2-75.2); Absolute Eosinophils 0.3 10^3/uL (0-0.7); Absolute Lymphocytes 1.6 10^3/uL (1.2-3.4); Absolute Monocytes 0.5 10^3/uL (0.1-0.6); Absolute Neutrophils 2.8 10^3/uL (1.4-6.5); Hematocrit 45.2 % (39.0-52.0); Hemoglobin 15.5 g/dL (13.0-18.0); Mean Corp Hgb Conc. 34.3 g/dL (33.0-37.0); Mean Corpuscular Hgb 30.5 pg (27.0-31.0); Mean Corpuscular Volume 88.8 fL (80.0-94.0); Mean Platelet Volume 9.4 fL (7.4-10.4); Platelet Count 195 10^3/uL (130-400); Red Blood Cell Count 5.09 10^6/uL (4.70-6.10); Red Cell Dist. Width 13.7 % (11.5-14.5); White Blood Cell Count 5.2 10^3/uL (4.8-10.8)
== END ==
LOC: OIDL 14:57
PROVIDERS: ATTENDING PHYSICIAN Internal Medicine Hematology & Oncology
DX: D47.2 Monoclonal gammopathy (principal)
CPT/HCPCS: 85025

== ENCOUNTER → 2024-06-27 09:20 | Outpatient (REF) | payer MEDICARE, SELFPAY ==
[2024-06-27 09:16] LABS: % Basophils 0.7 % (0-2); % Eosinophils 7.8 % (0-6); % Lymphocytes 33.9 % (20.5-51.1); % Monocytes 9.6 % (1.7-9.3); Absolute Eosinophils 0.4 10^3/uL (0-0.7); Absolute Lymphocytes 1.6 10^3/uL (1.2-3.4); Absolute Monocytes 0.4 10^3/uL (0.1-0.6); Absolute Neutrophils 2.2 10^3/uL (1.4-6.5); Hematocrit 43.7 % (39.0-52.0); Hemoglobin 14.9 g/dL (13.0-18.0); Mean Corp Hgb Conc. 34.1 g/dL (33.0-37.0); Mean Corpuscular Hgb 30.5 pg (27.0-31.0); Mean Corpuscular Volume 89.4 fL (80.0-94.0); Mean Platelet Volume 9.3 fL (7.4-10.4); Platelet Count 203 10^3/uL (130-400); Red Blood Cell Count 4.89 10^6/uL (4.70-6.10); Red Cell Dist. Width 13.7 % (11.5-14.5); White Blood Cell Count 4.6 10^3/uL (4.8-10.8)
== END ==
LOC: OIDL 09:20
PROVIDERS: ATTENDING PHYSICIAN Internal Medicine Hematology & Oncology
DX: D47.2 Monoclonal gammopathy (principal)
CPT/HCPCS: 85025

== ENCOUNTER → 2024-07-18 10:18 | Outpatient (REF) | payer MEDICARE, SELFPAY ==
[2024-07-18 09:19] LABS: % Lymphocytes 28.7 % (20.5-51.1); % Neutrophils 53.3 % (42.2-75.2); Absolute Basophils 0.1 10^3/uL (0-0.2); Absolute Eosinophils 0.4 10^3/uL (0-0.7); Absolute Lymphocytes 1.5 10^3/uL (1.2-3.4); Absolute Monocytes 0.5 10^3/uL (0.1-0.6); Absolute Neutrophils 2.8 10^3/uL (1.4-6.5); Hematocrit 44.7 % (39.0-52.0); Hemoglobin 15.2 g/dL (13.0-18.0); Mean Corpuscular Hgb 30.5 pg (27.0-31.0); Mean Corpuscular Volume 89.8 fL (80.0-94.0); Mean Platelet Volume 9.6 fL (7.4-10.4); Platelet Count 188 10^3/uL (130-400); Red Blood Cell Count 4.98 10^6/uL (4.70-6.10); Red Cell Dist. Width 13.7 % (11.5-14.5); White Blood Cell Count 5.2 10^3/uL (4.8-10.8)
[2024-07-18 10:17] LABS: ALT (SGPT) 31 U/L (0-50); AST (SGOT) 37 U/L (17-59); Albumin 4.5 g/dl (3.5-5.0); Alkaline Phosphatase 86 U/L (38-126); Blood Urea Nitrogen 25 mg/dl (9-20); Calcium 9.7 mg/dl (8.4-10.2); Carbon Dioxide 27 mmol/L (22-30); Chloride 100 mmol/L (98-107); Glucose 96 mg/dl (70-99); Potassium 4.1 mmol/L (3.5-5.1); Sodium 140 mmol/L (135-145); Total Bilirubin 1.1 mg/dl (0.2-1.3); eGFR > 60.00
== END ==
LOC: OIDL 10:18
PROVIDERS: ATTENDING PHYSICIAN Internal Medicine Hematology & Oncology
DX: D47.2 Monoclonal gammopathy (principal)
CPT/HCPCS: 80053; 85025

== ENCOUNTER → 2024-08-29 13:57 | Outpatient (REF) | payer MEDICARE, SELFPAY ==
[2024-08-29 09:28] LABS: % Basophils 1.2 % (0-2); % Eosinophils 7.4 % (0-6); % Lymphocytes 31.1 % (20.5-51.1); % Monocytes 9.2 % (1.7-9.3); % Neutrophils 51.1 % (42.2-75.2); Absolute Basophils 0.1 10^3/uL (0-0.2); Absolute Eosinophils 0.4 10^3/uL (0-0.7); Absolute Lymphocytes 1.6 10^3/uL (1.2-3.4); Absolute Monocytes 0.5 10^3/uL (0.1-0.6); Absolute Neutrophils 2.6 10^3/uL (1.4-6.5); Hematocrit 42.8 % (39.0-52.0); Hemoglobin 14.3 g/dL (13.0-18.0); Mean Corp Hgb Conc. 33.4 g/dL (33.0-37.0); Mean Corpuscular Hgb 30.1 pg (27.0-31.0); Mean Corpuscular Volume 90.1 fL (80.0-94.0); Mean Platelet Volume 9.6 fL (7.4-10.4); Platelet Count 193 10^3/uL (130-400); Red Blood Cell Count 4.75 10^6/uL (4.70-6.10); Red Cell Dist. Width 13.7 % (11.5-14.5)
[2024-08-29 10:11] LABS: ALT (SGPT) 32 U/L (0-50); AST (SGOT) 41 U/L (17-59); Albumin 4.2 g/dl (3.5-5.0); Alkaline Phosphatase 89 U/L (38-126); Blood Urea Nitrogen 32 mg/dl (9-20); Calcium 9.4 mg/dl (8.4-10.2); Carbon Dioxide 28 mmol/L (22-30); Chloride 102 mmol/L (98-107); Glucose 93 mg/dl (70-99); Potassium 4.2 mmol/L (3.5-5.1); Sodium 139 mmol/L (135-145); Total Bilirubin 0.8 mg/dl (0.2-1.3); Total Protein 7.7 g/dl (6.3-8.2); eGFR > 60.00
[2024-08-30 22:37] LABS: Beta-2-Microglobulin 2.3 mg/L (<=3.0)
[2024-09-01 02:41] LABS: Albumin 4.02 g/dL (3.75-5.01); Alpha 1 Globulin 0.23 g/dL (0.19-0.46); Alpha 2 Globulin 0.58 g/dL (0.48-1.05); Free Kappa Light Chains,Quant 23.69 mg/L (3.30-19.40); Free Lambda Light Chains,Quant 16.74 mg/L (5.71-26.30); IgA 172 mg/dL (68-408); IgG 1818 mg/dL (768-1632); IgM 324 mg/dL (35-263); Immunofixation Electrophoresis IFE Done; Kappa/Lambda Fr Light Ratio 1.42 (0.26-1.65); Monoclonal Protein 0.51 g/dL (<=0.00); Total Protein-Electrophoresis 7.5 g/dL (6.3-8.2)
== END ==
LOC: OIDL 13:57
PROVIDERS: ATTENDING PHYSICIAN Nurse Practitioner Adult Health
DX: D47.2 Monoclonal gammopathy (principal); C88.00 Waldenstrom macroglobulinemia not having achieved remission; G72.89 Other specified myopathies
CPT/HCPCS: 80053; 82232; 82784; 83521; 84155; 84165; 85025; 86334

== ENCOUNTER → 2024-09-19 15:55 | Outpatient (REF) | payer MEDICARE, SELFPAY ==
[2024-09-19 09:35] LABS: % Basophils 0.9 % (0-2); % Eosinophils 7.1 % (0-6); % Immature Granulocytes 0.2 % (0-0.5); % Lymphocytes 26.7 % (20.5-51.1); % Monocytes 6.4 % (1.7-9.3); % Neutrophils 58.7 % (42.2-75.2); Absolute Basophils 0.1 10^3/uL (0-0.2); Absolute Eosinophils 0.4 10^3/uL (0-0.7); Absolute Lymphocytes 1.5 10^3/uL (1.2-3.4); Absolute Monocytes 0.4 10^3/uL (0.1-0.6); Absolute Neutrophils 3.3 10^3/uL (1.4-6.5); Hematocrit 43.9 % (39.0-52.0); Hemoglobin 14.8 g/dL (13.0-18.0); Mean Corp Hgb Conc. 33.7 g/dL (33.0-37.0); Mean Corpuscular Hgb 30.4 pg (27.0-31.0); Mean Corpuscular Volume 90.1 fL (80.0-94.0); Mean Platelet Volume 10.2 fL (7.4-10.4); Platelet Count 194 10^3/uL (130-400); Red Blood Cell Count 4.87 10^6/uL (4.70-6.10); Red Cell Dist. Width 13.7 % (11.5-14.5); White Blood Cell Count 5.7 10^3/uL (4.8-10.8)
== END ==
LOC: OIDL 15:55
PROVIDERS: ATTENDING PHYSICIAN Nurse Practitioner Adult Health
DX: D47.2 Monoclonal gammopathy (principal)
CPT/HCPCS: 85025

== ENCOUNTER → 2024-12-11 12:13 | Outpatient (REF) | payer MEDICARE, SELFPAY ==
[2024-12-11 09:41] LABS: % Basophils 1.4 % (0-2); % Eosinophils 4.9 % (0-6); % Immature Granulocytes 0.2 % (0-0.5); % Monocytes 8.2 % (1.7-9.3); % Neutrophils 56.3 % (42.2-75.2); Absolute Basophils 0.1 10^3/uL (0-0.2); Absolute Eosinophils 0.3 10^3/uL (0-0.7); Absolute Lymphocytes 1.5 10^3/uL (1.2-3.4); Absolute Monocytes 0.4 10^3/uL (0.1-0.6); Absolute Neutrophils 2.9 10^3/uL (1.4-6.5); Hemoglobin 15.3 g/dL (13.0-18.0); Mean Corp Hgb Conc. 33.3 g/dL (33.0-37.0); Mean Corpuscular Hgb 29.9 pg (27.0-31.0); Mean Corpuscular Volume 89.8 fL (80.0-94.0); Mean Platelet Volume 9.1 fL (7.4-10.4); Platelet Count 263 10^3/uL (130-400); Red Blood Cell Count 5.12 10^6/uL (4.70-6.10); Red Cell Dist. Width 13.2 % (11.5-14.5); White Blood Cell Count 5.1 10^3/uL (4.8-10.8)
[2024-12-11 10:40] LABS: ALT (SGPT) 33 U/L (0-50); AST (SGOT) 32 U/L (17-59); Albumin 4.6 g/dl (3.5-5.0); Alkaline Phosphatase 89 U/L (38-126); Blood Urea Nitrogen 27 mg/dl (9-20); Calcium 9.6 mg/dl (8.4-10.2); Carbon Dioxide 27 mmol/L (22-30); Chloride 98 mmol/L (98-107); Glucose 94 mg/dl (70-99); Potassium 4.1 mmol/L (3.5-5.1); Sodium 135 mmol/L (135-145); Total Bilirubin 1.1 mg/dl (0.2-1.3); Total Protein 7.9 g/dl (6.3-8.2); eGFR > 60.00
== END ==
LOC: OIDL 12:13
PROVIDERS: ATTENDING PHYSICIAN Internal Medicine Hematology & Oncology
DX: D47.2 Monoclonal gammopathy (principal)
CPT/HCPCS: 80053; 85025

== ENCOUNTER → 2025-03-19 09:37 | Outpatient (REF) | payer MEDICARE, SELFPAY ==
[2025-03-19 09:47] LABS: % Basophils 1.2 % (0-2); % Eosinophils 5.6 % (0-6); % Immature Granulocytes 0.2 % (0-0.5); % Lymphocytes 26.8 % (20.5-51.1); % Monocytes 10.8 % (1.7-9.3); % Neutrophils 55.4 % (42.2-75.2); Absolute Basophils 0.1 10^3/uL (0-0.2); Absolute Eosinophils 0.3 10^3/uL (0-0.7); Absolute Lymphocytes 1.5 10^3/uL (1.2-3.4); Absolute Monocytes 0.6 10^3/uL (0.1-0.6); Absolute Neutrophils 3.1 10^3/uL (1.4-6.5); Hematocrit 44.7 % (39.0-52.0); Mean Corp Hgb Conc. 33.6 g/dL (33.0-37.0); Mean Corpuscular Hgb 29.5 pg (27.0-31.0); Mean Platelet Volume 9.1 fL (7.4-10.4); Platelet Count 230 10^3/uL (130-400); Red Blood Cell Count 5.08 10^6/uL (4.70-6.10); Red Cell Dist. Width 13.2 % (11.5-14.5); White Blood Cell Count 5.7 10^3/uL (4.8-10.8)
[2025-03-19 10:28] LABS: ALT (SGPT) 24 U/L (0-50); AST (SGOT) 26 U/L (17-59); Alkaline Phosphatase 83 U/L (38-126); Blood Urea Nitrogen 22 mg/dl (9-20); Calcium 9.3 mg/dl (8.4-10.2); Carbon Dioxide 30 mmol/L (22-30); Chloride 104 mmol/L (98-107); Glucose 101 mg/dl (70-99); Potassium 4.2 mmol/L (3.5-5.1); Sodium 138 mmol/L (135-145); Total Bilirubin 0.9 mg/dl (0.2-1.3); Total Protein 6.9 g/dl (6.3-8.2); eGFR > 60.00
== END ==
LOC: OIDL 09:37
PROVIDERS: ATTENDING PHYSICIAN Internal Medicine Hematology & Oncology
DX: D47.2 Monoclonal gammopathy (principal); C88.00 Waldenstrom macroglobulinemia not having achieved remission; G72.89 Other specified myopathies
CPT/HCPCS: 80053; 85025

== ENCOUNTER → 2025-04-10 12:18 | Outpatient (REF) | payer MEDICARE, SELFPAY | LOC: MRI 12:18 | PROVIDERS: ATTENDING PHYSICIAN Psychiatry & Neurology Neuromuscular Medicine; FAMILY PHYSICIAN Internal Medicine | DX: M54.31 Sciatica, right side (principal) | CPT/HCPCS: 72158; A9575 ==

== ENCOUNTER → 2025-05-01 07:58 | Outpatient (REF) | payer MEDICARE, SELFPAY | LOC: RCS 07:58 | PROVIDERS: ATTENDING PHYSICIAN Internal Medicine Cardiovascular Disease; FAMILY PHYSICIAN Internal Medicine | DX: R00.1 Bradycardia, unspecified (principal) | CPT/HCPCS: 93306 ==

== ENCOUNTER → 2025-06-09 08:25 | Outpatient (REF) | payer MEDICARE, SELFPAY ==
[2025-06-09 09:25] LABS: Hematocrit 46.3 % (39.0-52.0); Hemoglobin 15.8 g/dL (13.0-18.0); Mean Corp Hgb Conc. 34.1 g/dL (33.0-37.0); Mean Corpuscular Volume 88.2 fL (80.0-94.0); Nucleated Red Blood Cells % 0 % (-); Platelet Count 227 10^3/uL (130-400); Red Cell Dist. Width 13.8 % (11.5-14.5)
[2025-06-09 10:25] LABS: ALT (SGPT) 35 U/L (0-50); AST (SGOT) 34 U/L (17-59); Albumin 5.0 g/dl (3.5-5.0); Alkaline Phosphatase 75 U/L (38-126); Blood Urea Nitrogen 37 mg/dl (9-20); Calcium 10.0 mg/dl (8.4-10.2); Carbon Dioxide 28 mmol/L (22-30); Chloride 102 mmol/L (98-107); Glucose 98 mg/dl (70-99); Magnesium 2.0 mg/dl (1.6-2.3); Potassium 4.2 mmol/L (3.5-5.1); Sodium 138 mmol/L (135-145); Total Protein 8.1 g/dl (6.3-8.2); eGFR 52.09
[2025-06-11 00:54] LABS: Myelin Assoc Glycoprotein Ab 43798 TU (0-999)
[2025-06-11 19:26] LABS: % Natural Killer Cells 20 % (5-28); CD19 % of Cells (B-cells) 0 % (5-21); CD19 Absolute Count 0 cells/uL (74-510); CD3 % of Cells (Total T-cells) 77 % (62-89); CD3 Absolute Count 1078 cells/uL (660-2200); CD4 % of Cells Analyzed 35 % (35-68); CD4 Absolute Count 485 cells/uL (490-1600); CD8 % of Cells Analyzed 46 % (10-46)
[2025-06-12 02:38] LABS: Albumin 4.83 g/dL (3.75-5.01); Free Kappa Light Chains,Quant 24.15 mg/L (3.30-19.40); Free Lambda Light Chains,Quant 18.55 mg/L (5.71-26.30); Immunofixation Electrophoresis IFE Done; Kappa/Lambda Fr Light Ratio 1.30 (0.26-1.65); Total Protein-Electrophoresis 7.7 g/dL (6.3-8.2)
== END ==
LOC: REG 08:25
PROVIDERS: ATTENDING PHYSICIAN Nurse Practitioner Adult Health; FAMILY PHYSICIAN Internal Medicine; OTHER PHYSICIAN Internal Medicine Hematology & Oncology
DX: D47.2 Monoclonal gammopathy (principal); C88.00 Waldenstrom macroglobulinemia not having achieved remission; G72.89 Other specified myopathies
CPT/HCPCS: 36415; 80053; 82232; 82784; 83516; 83521; 83735; 84155; 84165; 85025; 86334; 86355; 86357; 86359; 86360

== ENCOUNTER 2025-06-30 13:02 | Outpatient (RCR) | payer MEDICARE, SELFPAY | END 2025-06-30 23:59 | disposition home or self-care (01) | LOC: RPT 13:02 | PROVIDERS: ATTENDING PHYSICIAN Internal Medicine | DX: M51.26 Other intervertebral disc displacement, lumbar region (principal); Z73.6 Limitation of activities due to disability; M62.81 Muscle weakness (generalized); M25.551 Pain in right hip; R20.0 Anesthesia of skin | CPT/HCPCS: 97110; 97162 ==

== ENCOUNTER 2025-07-16 11:18 | Outpatient (RCR) | payer MEDICARE, SELFPAY | END 2025-07-16 14:37 | disposition home health service (06) | LOC: RPT 11:18 | PROVIDERS: ATTENDING PHYSICIAN Internal Medicine | DX: M51.26 Other intervertebral disc displacement, lumbar region (principal); Z73.6 Limitation of activities due to disability; M62.81 Muscle weakness (generalized); M25.551 Pain in right hip; R20.0 Anesthesia of skin | CPT/HCPCS: 97110 ==

== ENCOUNTER → 2025-08-21 10:12 | Outpatient (REF) | payer MEDICARE, SELFPAY ==
[2025-08-21 10:43] LABS: Hematocrit 44.7 % (39.0-52.0); Hemoglobin 14.9 g/dL (13.0-18.0); Mean Corp Hgb Conc. 33.3 g/dL (33.0-37.0); Mean Corpuscular Volume 88.5 fL (80.0-94.0); Nucleated Red Blood Cells % 0 % (-); Platelet Count 227 10^3/uL (130-400); Red Cell Dist. Width 13.7 % (11.5-14.5)
[2025-08-21 11:39] LABS: ALT (SGPT) 22 U/L (0-50); AST (SGOT) 29 U/L (17-59); Albumin 4.7 g/dl (3.5-5.0); Alkaline Phosphatase 75 U/L (38-126); Blood Urea Nitrogen 15 mg/dl (9-20); Calcium 9.8 mg/dl (8.4-10.2); Carbon Dioxide 30 mmol/L (22-30); Chloride 104 mmol/L (98-107); Glucose 96 mg/dl (70-99); Potassium 4.9 mmol/L (3.5-5.1); Sodium 139 mmol/L (135-145); Total Protein 7.4 g/dl (6.3-8.2); eGFR > 60.00
[2025-08-23 02:30] LABS: Myelin Assoc Glycoprotein Ab 36182 TU (0-999)
== END ==
LOC: REG 10:12
PROVIDERS: ATTENDING PHYSICIAN Internal Medicine Hematology & Oncology; FAMILY PHYSICIAN Internal Medicine
DX: D47.2 Monoclonal gammopathy (principal); C88.00 Waldenstrom macroglobulinemia not having achieved remission; G72.89 Other specified myopathies
CPT/HCPCS: 36415; 80053; 82232; 82784; 83516; 83521; 84155; 84165; 85025; 86334

== ENCOUNTER 2025-10-14 06:30 | Day surgery (SDC) | payer MEDICARE, SELFPAY | END 2025-10-14 11:38 | disposition home or self-care (01) | LOC: GI 06:30 | PROVIDERS: ATTENDING PHYSICIAN Internal Medicine Gastroenterology; FAMILY PHYSICIAN Physician Assistant | DX: Z12.11 Encounter for screening for malignant neoplasm of colon (principal); K64.9 Unspecified hemorrhoids; K57.30 Diverticulosis of large intestine without perforation or abscess without bleeding; D12.3 Benign neoplasm of transverse colon; D12.0 Benign neoplasm of cecum; D12.2 Benign neoplasm of ascending colon; K62.1 Rectal polyp; Z98.890 Other specified postprocedural states; Z86.0100 Personal history of colon polyps, unspecified | CPT/HCPCS: 45385; 45380; 88305 ==